=== PATIENT | male | born 1950 | race Caucasian/White ===

== ENCOUNTER 2016-07-19 11:13 | Outpatient (CLI) | payer MEDICARE | END 2016-07-19 11:14 | disposition home or self-care (01) | DX: Z13.6 Encounter for screening for cardiovascular disorders (principal) ==

== ENCOUNTER 2016-09-19 07:45 | Outpatient (CLI) | payer MEDICARE | END 2016-09-19 07:46 | disposition home or self-care (01) | DX: M51.26 Other intervertebral disc displacement, lumbar region (principal); M51.27 Other intervertebral disc displacement, lumbosacral region; M47.896 Other spondylosis, lumbar region; M43.16 Spondylolisthesis, lumbar region; M51.36 Other intervertebral disc degeneration, lumbar region; M51.37 Other intervertebral disc degeneration, lumbosacral region ==

== ENCOUNTER 2016-10-23 10:22 | Outpatient (CLI) | payer MEDICARE ==
--- NOTE | 2016-10-23 11:59 | Ultrasound Report ---
RIGHT INGUINAL ULTRASOUND: 10/23/2016 CLINICAL INDICATION: Persistent pain, question recurrent hernia. TECHNIQUE: Real-time scanning was performed with employment program representative static images obtained. FINDINGS: Ultrasound of the right inguinal region was performed. No hernia is identified at rest or with Valsalva. No adenopathy is appreciated. IMPRESSION: NO EVIDENCE OF RIGHT GROIN HERNIA. JOB #: [id number] EXT JOB #:[id number]
--- NOTE | 2016-10-23 12:00 | Ultrasound Report ---
SCROTAL DUPLEX: 10/23/2016 CLINICAL INDICATION: Persistent right-sided pain. TECHNIQUE: Real-time sonographic vascular imaging was performed by the dark room attendant through the scrotu m utilizing both color-flow and Doppler spectral analysis. Multiple unit support representative static images wer e saved for review. FINDINGS: The right testicle measures 5.1 x 3.7 x 2.4 cm, and the left testicle measures 5.3 x 3.6 x 2.8 cm. Both testicles demonstrate normal flow and echotexture. Trace hydroceles are present bilater ally. The epididymides are unremarkable. No varicocele or hernia is identified. IMPRESSION: TRACE BILATERAL HYDROCELES. NORMAL TESTICLES. JOB #: [id number] EXT JOB #:[id number]
== END 2016-10-23 10:23 | disposition home or self-care (01) ==
LOC: DI 10:22
PROVIDERS: ATTEND Internal Medicine
DX: N50.811 Right testicular pain (principal); R10.31 Right lower quadrant pain; N43.3 Hydrocele, unspecified
CPT/HCPCS: 76857; 76870

== ENCOUNTER 2023-05-18 09:51 | Outpatient (CLI) | payer MEDICARE ==
[2023-05-18] MEDS ORDERED: iohexoL-300 100 ML VIAL IVP ONE (15:46)
--- NOTE | 2023-05-18 18:47 | CT Report ---
PROCEDURE: SOFT TISSUE NECK W INDICATIONS: DYSPHAGIA CONTRAST: Omni 300 100ml TECHNIQUE: After the administration of intravenous contrast, 3.0 mm axial sections acquired from the sella to th e aortic arch. Additional oblique axial 3.0 mm sections acquired through the pharynx. 3 mm thick co dayan reformats were generated. For radiation dose reduction, the following was used: automated exp osure control, adjustment of mA and/or kV according to patient size. COMPARISON: None. FINDINGS: Image quality: There is streak artifact seen to the level of the shoulders. Lymph nodes: The marked a barbara of clinical concern, there is an abnormal left level 2A lymph node seen that measures 2 x 2 centi meters, as on series 2 image 47. More superiorly to this, there are additional enlarged lymph nodes s een, including a lymph node on series 2 image 38 measuring 21 x 15 mm in greatest axial dimension. On the right at level 2A, there is a mildly enlarged 12 x 14 mm lymph node seen. Vessels: Visualized vasculature appears patent. Neck spaces: There is a significant left tongue base mass that measures 3.7 x 2.9 cm in greatest axi al dimension. This lesion is moderately hyperenhancing compared to the surrounding normal mucosal tissue. Mass effe ct can be seen upon the epiglottis, which is deviated posteriorly. Glands: The parotid and submandibular glands appear normal. The thyroid is normal in size and there are no incidental findings. Miscellaneous: Visualized brain and orbits appear normal. Lung apices appear clear. Superficial so ft tissues appear normal. Bones: No suspicious bony lesions. Focal moderate mucosal thickening can be seen within the right sp henoid sinus. Mild scattered areas of mucosal thickening can be seen elsewhere within the paranasal s inuses. No significant abnormal fluid can be seen within the mastoid air cells. Moderate to prominent cervical spine degenerative change can be seen. IMPRESSION: Metastatic neoplasm until proven otherwise. There is a left tongue base mass seen, with abnormally enlarged lymph nodes seen on the left at level 2A. At least one mildly enlarged right level 2 lymph node can also be seen. Moderate to prominent cervical spine degenerative change is seen. Focal right sphenoid sinus disease can be seen. Reviewed by: Timothy Crockett MD on 05/18/2023 5:45 PM AKST Approved by: Timothy Crockett MD on 05/18/2023 5:45 PM AKST Station ID: [id number]
== END 2023-05-18 09:52 | disposition home or self-care (01) ==
LOC: DI 09:51
PROVIDERS: ATTEND Internal Medicine
DX: Z01.818 Encounter for other preprocedural examination (principal); C79.89 Secondary malignant neoplasm of other specified sites; R59.0 Localized enlarged lymph nodes; M47.812 Spondylosis without myelopathy or radiculopathy, cervical region; J32.3 Chronic sphenoidal sinusitis
CPT/HCPCS: 70491; 93005; Q9967

== ENCOUNTER 2023-09-02 11:41 | Outpatient (CLI) | payer MEDICARE | END 2023-09-02 23:59 | disposition EMS.NT | LOC: EMS 11:41 | DX: Z03.89 Encounter for observation for other suspected diseases and conditions ruled out (principal) ==